=== PATIENT | male | born 1955 | race Caucasian/White ===

== ENCOUNTER 2021-11-14 12:58 | Outpatient (REF) | payer MEDICARE, SELFPAY ==
[2021-11-14 15:17] LABS: Appearance Urine CLEAR; Color Urine YELLOW; Glucose Urine UA >=1000 MG/DL (NEG); Hematocrit 39.8 % (42.0-52.0); Hemoglobin 11.3 g/dl (14.0-18.0); Leukocyte Esterase Urine NEG (NEG); Mean Corpuscular HGB Conc 28.4 g/dl (31.0-36.0); Mean Corpuscular Hemoglobin 20.1 pg (27.0-33.0); Mean Corpuscular Volume 70.8 fL (80.0-98.0); Mean Platelet Volume 10.2 fL (9.4-12.4); Nitrite Urine NEG (NEG); PH 5.5 (5.0-8.0); Platelet Count 334 X10*3/uL (160-400); Red Blood Count 5.62 X10*6/uL (4.60-5.80); Red Cell Distribution Width 19.5 % (11.0-16.0); Specific Gravity - Urine 1.025 (1.005-1.025); Urine Blood 1+ (NEG); Urine Ketones 15 MG/DL (NEG); Urine Protein 2+ MG/DL (NEG-TRACE); White Blood Count 9.5 X10*3/uL (4.8-10.8)
[2021-11-14 15:37] LABS: Anion Gap 14 (12-20); Blood Urea Nitrogen 17 mg/dL (9-16); Calcium 8.7 mg/dL (8.4-10.2); Carbon Dioxide 23 mmol/L (22-29); Chloride 104 mmol/L (96-108); Cholesterol 100 mg/dL; Estimated Glomerular Filt Rate > 60; Glucose Random 264 mg/dL (60-115); HDL Cholesterol 42 mg/dL; LDL Cholesterol Calculated 46 mg/dl; Potassium 4.6 mmol/L (3.3-5.1); Sodium 136 mmol/L (135-145); Triglycerides 63 mg/dL
[2021-11-14 15:46] LABS: Mucus Urine TRACE /LPF; Squamous Epithelial Cell Urine TRACE /LPF; WBC Urine 0-2 /HPF (0-4)
[2021-11-14 15:58] LABS: Thyroid Stimulating Hormone 1.89 uIU/mL (0.32-4.0)
== END 2021-11-14 12:59 | disposition home or self-care (01) ==
LOC: HO.HMGCLDS 12:58
PROVIDERS: PCP Nurse Practitioner Family; Visit Provider Internal Medicine
DX: I50.9 Heart failure, unspecified (principal)
CPT/HCPCS: 36415; 80048; 80061; 81001; 84443; 85027

== ENCOUNTER 2022-01-26 12:28 | Outpatient (REF) | payer MEDICARE, SELFPAY ==
[2022-01-26 14:18] LABS: Estimated Average Glucose 258 mg/dL; Hemoglobin A1c % 10.6 %
[2022-01-26 14:37] LABS: Alanine Aminotransferase 15 U/L (0-40); Albumin Level 4.1 g/dL (3.5-5.0); Alkaline Phosphatase 70 U/L (39-117); Anion Gap 16 (12-20); Aspartate Amino Transferase 11 U/L (5-37); Bilirubin Total 0.4 mg/dL (0.0-1.0); Blood Urea Nitrogen 23 mg/dL (9-16); Calcium 9.8 mg/dL (8.4-10.2); Carbon Dioxide 31 mmol/L (22-29); Chloride 97 mmol/L (96-108); Estimated Glomerular Filt Rate 50; Glucose Random 302 mg/dL (60-115); Potassium 4.8 mmol/L (3.3-5.1); Sodium 139 mmol/L (135-145); Total Protein 7.9 g/dL (6.5-8.0)
[2022-01-26 14:55] LABS: Digoxin 0.7 ng/mL (0.8-2.0)
[2022-01-26 17:53] LABS: Creatinine Urine 48.13 mg/dL; Microalbum/Creatinine Ratio Ur 533.9 ug/mg cr
== END 2022-01-26 12:29 | disposition home or self-care (01) ==
LOC: HO.HMGCLDS 12:28
PROVIDERS: PCP Internal Medicine; Visit Provider Internal Medicine
DX: E11.9 Type 2 diabetes mellitus without complications (principal); I50.9 Heart failure, unspecified; Z76.89 Persons encountering health services in other specified circumstances
CPT/HCPCS: 36415; 80053; 80162; 82043; 83036

== ENCOUNTER 2022-02-05 13:54 | Outpatient (REF) | payer MEDICARE, SELFPAY ==
[2022-02-05 16:52] LABS: Alanine Aminotransferase 12 U/L (0-40); Albumin Level 4.1 g/dL (3.5-5.0); Alkaline Phosphatase 66 U/L (39-117); Anion Gap 16 (12-20); Aspartate Amino Transferase 11 U/L (5-37); Bilirubin Total 0.4 mg/dL (0.0-1.0); Blood Urea Nitrogen 22 mg/dL (9-16); Calcium 9.9 mg/dL (8.4-10.2); Carbon Dioxide 32 mmol/L (22-29); Chloride 96 mmol/L (96-108); Estimated Glomerular Filt Rate 50; Glucose Random 319 mg/dL (60-115); Potassium 4.7 mmol/L (3.3-5.1); Sodium 139 mmol/L (135-145); Total Protein 7.8 g/dL (6.5-8.0)
== END 2022-02-05 13:55 | disposition home or self-care (01) ==
LOC: HO.HMGCLDS 13:54
PROVIDERS: Visit Provider Nurse Practitioner Family
DX: R79.89 Other specified abnormal findings of blood chemistry (principal)
CPT/HCPCS: 36415; 80053

== ENCOUNTER 2022-06-24 11:50 | Outpatient (REF) | payer MEDICARE, SELFPAY ==
--- NOTE | 2022-06-24 09:00 | EMG_ITS ---
Right tibial and peroneal motor studies were performed and right superficial peroneal and sural sensory studies were performed with tibial H-reflex. With no response obtained in right lower extremity, right upper extremity was extended to define underlying pathology. Right median and ulnar motor and sensory studies were performed and radial sensory study was performed. Limited needle examination was performed. 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 MD SUZIE Macario/MODL / [id number]
== END 2022-06-24 11:51 | disposition home or self-care (01) ==
LOC: HO.NEURO 11:50
PROVIDERS: PCP Nurse Practitioner Family; Visit Provider Nurse Practitioner Family
DX: R29.898 Other symptoms and signs involving the musculoskeletal system (principal)
CPT/HCPCS: 95885; 95911